=== PATIENT | male | born 1985 | race Caucasian/White ===

== ENCOUNTER 2023-07-30 07:39 | Emergency (ER) | payer BC ==
[~2023-07-30] VITALS: Ht 160 cm; Wt 77.1 kg
[2023-07-30 07:45] VITALS: BP_SYST 119; PULSE 71; RESP 18; TEMP 98; O2SAT 100
[2023-07-30] MEDS ORDERED: MOXI3DRO OP (08:43)
[2023-07-30] MEDS ORDERED: [UNRECOGNIZED DRUG - CODE] LEFT EYE (08:43)
[2023-07-30 08:58] VITALS: BP_SYST 119; PULSE 71; RESP 18; TEMP 98; O2SAT 100
== END 2023-07-30 08:56 | disposition home or self-care (01) ==
LOC: SED 07:39
DX: H10.12 Acute atopic conjunctivitis, left eye (principal); Z98.890 Other specified postprocedural states; Z79.899 Other long term (current) drug therapy
CPT/HCPCS: 99283